=== PATIENT | male | born 1995 | race Caucasian/White ===

== ENCOUNTER 2020-12-20 21:03 | Emergency (ER) | payer OTHER, SELFPAY ==
[2020-12-20 21:33] VITALS: BP 121/76; PULSE 84; RESP 16; TEMP 36.4; O2SAT 96; BMI 28.4
[2020-12-20 22:29] LABS: Glucose Urine UA NEG (NEG); Leukocyte Esterase Urine TRACE (NEG); Nitrite Urine NEG (NEG); Specific Gravity - Urine 1.025 (1.005-1.025); Urine Blood NEG (NEG); Urine Ketones NEG (NEG); Urine Protein NEG (NEG-TRACE)
[2020-12-20 22:31] LABS: Appearance Urine CLEAR; Color Urine YELLOW
[2020-12-20 23:09] LABS: RBC Urine 0-2 /HPF (0); Renal Epithelial Cells Urine TRACE /LPF; Squamous Epithelial Cell Urine TRACE /LPF; WBC Clumps Urine NOTED
--- NOTE | 2020-12-21 00:47 | ED_ITS ---
HPI - Male Genitourinary General Chief complaint: Urogenital-Male Stated complaint: STD Test Time Seen by Provider: 12/21/20 00:40 Source: patient Mode of arrival: ambulatory Limitations: no limitations History of Present Illness HPI Narrative: Patient comes emergency room complaining of burning with urination, penile discharge for 4-5 days. Patient admits to having unprotected sex approximately 1 week ago. Patient denies hematuria, no flank pain, no fever. Patient denies also testicular pain or swelling. MD Complaint: penile discharge and possible STD exposure Related Data Previous Rx's Medication Instructions Recorded doxycycline hyclate 100 mg PO BID #13 tab 12/21/20 nitrofurantoin macrocrystal 100 mg PO BID #14 cap 12/21/20 Allergies Allergy/AdvReac Type Severity Reaction Status Date / Time No Known Allergies Allergy Verified 12/20/20 21:37 Review of Systems Review of Systems: Constitutional : No Weight loss, No Fever, No Chills, No Night Sweats, No Fatigue, No Malaise ENT/Mouth : No Hearing loss, No Ear Pain, No Nasal Congestion, No Sinus Pain, No Hoarseness, No sore throat, No Rhinorrhea, No Swallowing Difficulty Eyes: No Eye Pain, No Swelling, No Redness, No Foreign Body, No Discharge, No Vision Changes Cardiovascular : No Chest Pain, No SOB, No Dyspnea on Exertion, No Orthopnea, No Edema, No Palpitations Respiratory : No Cough, No Sputum, No Wheezing, No Smoke Exposure, No Dyspnea Gastrointestinal : No Nausea, No Vomiting, No Diarrhea, No Constipation, No abdominal Pain, No Hematochezia, No Melena Genitourinary : Complaining of dysuria, No Urinary Frequency, No Hematuria, No Urinary Incontinence, No Urgency, No Flank Pain, No Urinary Flow Changes, No Hesitancy, complaining of penile discharge, denies testicular pain Musculoskeletal : No joint pain, No Myalgias, No Joint Swelling Skin : No Skin Lesions, No rash Neuro : No Weakness, No Numbness, No Paresthesias, No Loss of Consciousness, No Dizziness, No Headache Psych : No Anxiety/Panic, No Depression, No SI/HI/AH/VH, No Social Issues, Heme/Lymph: No Bruising, No Bleeding,No Lymphadenopathy Endocrine : No Polyuria, No Polydipsia, No Temperature Intolerance [facility] Past Medical History Medical History No known health problems Social History Social History Advance Directives: No Advance Directives Information Provided: No Physical Exam Vital Signs: Vital Signs: Last Vital Signs Temp 97.5 F 12/20/20 21:33 Pulse 84 12/20/20 21:33 Resp 16 12/20/20 21:33 BP 121/76 12/20/20 21:33 Pulse Ox 96 12/20/20 21:33 Body Mass Index 28.4 Appearance: Alert. Oriented X3. No acute distress. Eyes: Pupils equal, round and reactive to light. ENT: Pharynx normal. Neck: Normal inspection. Neck supple. No lymph nodes noted. No crepitus CVS: Normal heart rate and rhythm. Pulses normal. Normal S1 and S2 Respiratory: No respiratory distress. Breath sounds normal. No Wheezing. No rales Abdomen: Soft and nontender. No rigidity. No distention. : Clear penile discharge Skin: Skin warm and dry. Normal skin color. Normal skin turgor. Extremities: No lower extremity edema. No lower extremity edema. No Lacerations. No Rash Neuro: Oriented X 3. No motor deficit. No sensory deficit. Moving all extermities. No slurred speech. Course Course Course Narrative: Patient received the 1st dose of ceftriaxone IM and p.o. doxycycline. CT NG pending MDM - Male Genitourinary Lab Data Labs: Lab Results 12/20/20 Range/Units 22:20 Urine Color YELLOW Urine Appearance CLEAR Urine pH 6.0 (5.0-8.0) Ur Specific [place] 1.025 (1.005-1.025) Urine Protein NEG (NEG-TRACE) MG/DL Urine Glucose (UA) NEG (NEG) MG/DL Urine Ketones NEG (NEG) MG/DL Urine Blood NEG (NEG) Urine Nitrite NEG (NEG) Ur Leukocyte Esterase TRACE H (NEG) Urine RBC 0-2 (0) /HPF Urine WBC 15-29 H (0-4) /HPF Urine WBC Clumps NOTED Ur Squamous Epith Cells TRACE /LPF Ur Renal Epithelial Cell TRACE /LPF Urine Bacteria NONE /LPF Discharge Plan Discharge Clinical Impression: Sexually transmitted disease (STD) Urinary tract infection Qualifiers: Urinary tract infection type: site unspecified Hematuria presence: without hematuria Qualified Code(s): N39.0 - Urinary tract infection, site not specified Patient Disposition: Home, Self-Care Instructions: Sexually Transmitted Diseases (ED), Safe Sex Practices (ED) Additional Instructions: Please follow-up with your primary care physician tomorrow. If you have any worsening or new symptoms, please return to the emergency room or call 911 Prescriptions: New doxycycline hyclate 100 mg tablet 100 mg PO BID Qty: 13 RF: 0 nitrofurantoin macrocrystal 100 mg capsule 100 mg PO BID Qty: 14 RF: 0
[2020-12-21] MEDS: cefTRIAXone sodium 500 MG, Lidocaine HCl 1 % MPF 1 ML IM (01:04)
[2020-12-21 10:37] LABS: CT PCR NOT DETECTED (Not Detect.); NG PCR NOT DETECTED (Not Detect.)
== END 2020-12-21 01:21 | disposition home or self-care (01) ==
PROVIDERS: Emergency Provider Emergency Medicine; PCP Internal Medicine
DX: R30.0 Dysuria (principal); Z20.2 Contact with and (suspected) exposure to infections with a predominantly sexual mode of transmission; Z79.899 Other long term (current) drug therapy
CPT/HCPCS: 81001; 87491; 87591; 96360; 96372; 99283; J0696

== ENCOUNTER 2022-06-19 13:34 | Emergency (ER) | payer OTHER, SELFPAY ==
--- NOTE | ~2022-06-19 | XR_ITS ---
EXAMINATION: XR TOES, LEFT CLINICAL INFORMATION: Fourth toe pain after trauma COMPARISON: None TECHNIQUE: 3 views of the left toes were obtained. FINDINGS: There is no evidence of acute fracture or dislocation of the left fourth toe. Joint spaces are maintained. No radiopaque foreign body. XR/XR toe LT min 2V IMPRESSION: No bony abnormality of the left fourth toe identified.
[2022-06-19 14:12] VITALS: BP 121/69; PULSE 73; RESP 19; TEMP 36.6; O2SAT 98; BMI 28.1
--- NOTE | 2022-06-19 14:22 | ED_ITS ---
HPI - Extremity Injury (Lower) General Chief Complaint: Extremity Injury, Lower <Italia Smith NP - Last Filed: 06/19/22 14:22> Stated Complaint: toe/ foot pain <Italia Smith NP - Last Filed: 06/19/22 14:22> Time Seen by Provider: 06/19/22 14:50 <Italia Smith NP - Last Filed: 06/19/22 14:22> Source: patient <CARINA Graff - Last Filed: 06/19/22 16:32> Mode of arrival: ambulatory <CARINA Graff - Last Filed: 06/19/22 16:32> Limitations: no limitations <CARINA Graff - Last Filed: 06/19/22 16:32> History of Present Illness HPI Narrative: 26yoM who works for [employer] presenting to the ER with complaints of left foot pain at the proximal aspect of the 4th toe that started on Tuesday of last week while he was at work working for [employer]. He reports that he was unloading the truck and 1 of the bags that holds a lot of packages that is approximately over 50 lb fell directly onto his foot and since then he has been having intermittent pain. He denies any other injuries complaints or concerns at this time. <CARINA Graff - Last Filed: 06/19/22 16:32> MD complaint: foot injury <CARINA Graff - Last Filed: 06/19/22 16:32> Onset (ago): week(s) (1) <CARINA Graff - Last Filed: 06/19/22 16:32> Injury: Left: foot and toes (Fourth toe proximal aspect) <CARINA Graff - Last Filed: 06/19/22 16:32> Type of Injury: blunt <CARINA Graff - Last Filed: 06/19/22 16:32> Place: work <CARINA Graff Last Filed: 06/19/22 16:32> Severity: mild <CARINA Graff Last Filed: 06/19/22 16:32> Relieving factors: nothing <CARINA Graff Last Filed: 06/19/22 16:32> Exacerbating factors: movement <CARINA Graff Last Filed: 06/19/22 16:32> Context: direct blow <CARINA Graff Last Filed: 06/19/22 16:32> Associated symptoms: swelling and ambulatory <CARINA Graff Last Filed: 06/19/22 16:32> Other symptoms: none <CARINA Graff Last Filed: 06/19/22 16:32> Related Data Home Medications: Previous Rx's Medication Instructions Recorded naproxen 500 mg tablet 500 mg PO BID PRN pain #14 tabs 06/19/22 <Italia Smith NP - Last Filed: 06/19/22 14:22> Allergies/Adverse Reactions: Allergies Allergy/AdvReac Type Severity Reaction Status Date / Time No Known Allergies Allergy Verified 12/18/21 10:36 <Italia Smith NP - Last Filed: 06/19/22 14:22> Review of Systems Review of Systems: Constitutional : No Weight loss, No Fever, No Chills, No Night Sweats, No Fatigue, No Malaise ENT/Mouth : No Hearing loss, No Ear Pain, No Nasal Congestion, No Sinus Pain, No Hoarseness, No sore throat, No Rhinorrhea, No Swallowing Difficulty Eyes: No Eye Pain, No Swelling, No Redness, No Foreign Body, No Discharge, No Vision Changes Cardiovascular : No Chest Pain, No SOB, No Dyspnea on Exertion, No Orthopnea, No Edema, No Palpitations Respiratory : No Cough, No Sputum, No Wheezing, No Smoke Exposure, No Dyspnea Gastrointestinal : No Nausea, No Vomiting, No Diarrhea, No Constipation, No abdominal Pain, No Hematochezia, No Melena Genitourinary : no irregular bleeding, No Dysuria, No Urinary Frequency, No Hematuria, No Urinary Incontinence, No Urgency, No Flank Pain, No Urinary Flow Changes, No Hesitancy Musculoskeletal : + left 4th toe/foot joint pain, No Myalgias, No Joint Swelling Skin : No Skin Lesions, No rash Neuro : No Weakness, No Numbness, No Paresthesias, No Loss of Consciousness, No Dizziness, No Headache Psych : No Anxiety/Panic, No Depression, No SI/HI/AH/VH, No Social Issues, Heme/Lymph: No Bruising, No Bleeding,No Lymphadenopathy Endocrine : No Polyuria, No Polydipsia, No Temperature Intolerance <CARINA Graff - Last Filed: 06/19/22 16:32> Yes all other systems are reviewed and are negative <CARINA Graff - Last Filed: 06/19/22 16:32> [facility] Past Medical History Attestation statement: The following information was validated with the patient. 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], left leg No known health problems <Italia Smith NP - Last Filed: 06/19/22 14:22> Surgical History: Surgical History H/O myringotomy History of surgery on lower extremity <Italia Smith NP - Last Filed: 06/19/22 14:22> Family History Family History: Family History Maternal Grandmother Myocardial infarct <Italia Smith NP - Last Filed: 06/19/22 14:22> Social History Social History: Social History Housing: Other Patient Tobacco Use Status: Never used Tobacco Years Smoked: smokes pot e-Cigarette/Vaping Use: Never Used Second Hand Smoke Exposure: No Advance Directives: No Advance Directives Information Provided: Yes Current occupational status: employed Cognitive needs: No Hearing needs: No Vision needs: No <Italia Smith NP - Last Filed: 06/19/22 14:22> Physical Exam Vital Signs: Vital Signs: Last Vital Signs Temp 98 F 06/19/22 14:12 Pulse 73 06/19/22 14:12 Resp 19 06/19/22 14:12 BP 121/69 06/19/22 14:12 Pulse Ox 98 06/19/22 14:12 O2 Del Method 06/19/22 14:12 BMI result Body Mass Index 28.1 <Italia Smith NP - Last Filed: 06/19/22 14:22> Vital Signs: Last Vital Signs Temp 98 F 06/19/22 14:12 Pulse 73 06/19/22 14:12 Resp 19 06/19/22 14:12 BP 121/69 06/19/22 14:12 Pulse Ox 98 06/19/22 14:12 O2 Del Method 06/19/22 14:12 BMI result Body Mass Index 28.1 vital signs have been reviewed as normal and appeared to be correct. Blood pressure normal Heart rate normal. Respiration rate normal. Temperature normal. Oxygen saturation normal. <CARINA Graff - Last Filed: 06/19/22 16:32> Appearance: Alert. Oriented X3. No acute distress. Head: Normal external exam. Normocephalic. Atraumatic. Eyes: PERRLA. EOMI. Conjunctiva and sclera normal. Eyelids normal. ENT: Pharynx normal. Uvula midline. Moist mucous membranes. Neck: Normal inspection. Neck supple. FROM. CVS: Normal heart rate and rhythm. Respiratory: No respiratory distress. Painless inspiration. Skin: Skin warm and dry. Normal skin color. Normal skin turgor. No rashes/lesions/lacerations noted. Extremities: Patient mild tenderness palpation and soft tissue swelling to the proximal aspect of the 4th toe. No obvious ligamentous or tendon injury noted he has full range of motion all toe/foot and ankle joint. There is no 5th metatarsal tenderness noted. No ankle tenderness noted. Achilles tendon is intact not lacerated a ruptured. Negative Akers test. There is no signs of infection not consistent with septic joint. There is no lower extremity more calf tenderness. Otherwise all other extremities exhibit normal range of motion nontender. No lower extremity edema. Neuro: Oriented X 3. No motor deficit. No sensory deficit. Reflexes normal. Normal steady gait. No focal neuro deficits noted. Vascular: + 2 distal pedal pulses/+2 dorsalis pedis b/l. Normal cap refill. No cyanosis noted to upper extremity nails and lower extremity toes nails. <CARINA Graff - Last Filed: 06/19/22 16:32> Course Course Course Narrative: This is a rapid medical exam. Deferred additional HPI, ROS, PE to primary provider. 26 yo male here with left 4th toe pain after crush injury. will check x-rays. VSS. <Italia Smith NP - Last Filed: 06/19/22 14:22> Reevaluation(s) Reevaluation #1: Left foot x-ray negative for any acute processes. Will DC home with symptomatic treatment instructions return if any new or worsening symptoms follow up with primary care provider. Patient understands agrees with this plan. <CARINA Graff - Last Filed: 06/19/22 16:32> Time: 15:18 <CARINA Graff - Last Filed: 06/19/22 16:32> MDM - Extremity Injury (Lower) Medical Records Attestation: I reviewed the patient's medical records. <CARINA Graff - Last Filed: 06/19/22 16:32> Imaging Data Left toe/foot x-ray: Attestation: I personally reviewed and interpreted this imaging study as follows: <CARINA Graff - Last Filed: 06/19/22 16:32> Radiologist's impression: FINDINGS: There is no evidence of acute fracture or dislocation of the left fourth toe. Joint spaces are maintained. No radiopaque foreign body. XR/XR toe LT min 2V IMPRESSION: No bony abnormality of the left fourth toe identified. <CARINA Graff - Last Filed: 06/19/22 16:32> Discharge Plan Discharge Clinical Impression: Sprain of fourth toe, left, Work related injury <Italia Smith NP - Last Filed: 06/19/22 14:22> Patient Disposition: Home, Self-Care <Italia Smith NP - Last Filed: 06/19/22 14:22> Instructions: Foot Sprain (ED), Return to Work Instructions (ED) <Italia Smith NP - Last Filed: 06/19/22 14:22> Prescriptions: New naproxen 500 mg tablet 500 mg PO BID PRN (Reason: pain) Qty: 14 0RF <Italia Smith NP - Last Filed: 06/19/22 14:22> Referrals: Po,Lorenver O, MD [Primary Care Provider] - 3 days <Italia Smith NP - Last Filed: 06/19/22 14:22> Stand Alone Forms: Work/School Release <Italia Smith NP - Last Filed: 06/19/22 14:22> Print Language: Yakut <Italia Smith NP - Last Filed: 06/19/22 14:22>
--- OUTSIDE RECORDS SUMMARY | 2022-06-19 15:03 | XMS_ITS | Continuity of Care Document ---
:1995 Author Organization [facility] Address [address] [place] [id number]- Care Team Providers Name Role Phone Win Lynch MD Primary Care Physician Encounter [facility] Date(s): 08/17/19 - 08/17/[address] [address]- [facility] Discharge Disposition: A-D/C Home Attending Physician: Elijah Schrader DDS, MD Admitting Physician: Elijah Schrader DDS, MD Referring Physician: Elijah Schrader DDS, MD Allergies, Adverse Reactions, Alerts Substance Reaction Severity Status NKA Active Medications acetaminophen-oxycodone 325 mg-10 mg oral tablet 1 tablet, By Mouth, Every 4 hours, PRN Pain , Mild Pain , Moderate, for 5 days, # 24 tablet, 0 Refills, Acute 08/22/19 13:03:00 EST, 08/17/19 13:03:00 EST, Tablet, Partial fill upon patient request Start Date: 08/17/19 Stop Date: 08/22/19 Status: Ordered Vital Signs Most recent to oldest 1 2 3 4 [Reference Range]: Height 172.5 cm 171 cm (08/17/19 10:12 AM) (08/03/19 9:15 AM) Weight 81.6 kg 79.7 kg (08/17/19 10:12 AM) (08/03/19 9:15 AM) Oxygen Saturation 97 % 100 % 100 % [94-100 %] (08/17/19 2:00 PM) (08/17/19 1:45 PM) (08/17/19 1:30 PM) Pulse Rate [55-90 80 bpm bpm] (08/17/19 10:12 AM) Body Mass Index 27.42 27.26 [18.5-24.99] *H* *H* (08/17/19 10:12 AM) (08/03/19 9:15 AM) Blood Pressure 142/89 mm Hg 152/85 mm Hg 148/96 mm Hg [90-138/55-84 mm Hg] *H* *H* *H* (08/17/19 2:00 PM) (08/17/19 1:45 PM) (08/17/19 1:30 PM) Respiratory Rate 8 br/min 13 br/min 12 br/min [16-30 br/min] *L* *L* *L* (08/17/19 2:00 PM) (08/17/19 1:45 PM) (08/17/19 1:30 PM) Temperature 97.7 DegF 97.3 DegF 97.6 DegF [96.8-100.4 DegF] (08/17/19 1:30 PM) (08/17/19 1:00 PM) (08/17/19 10:1 2 AM) Liters per Minute 5 L/min 5 L/min (08/17/19 1:15 PM) (08/17/19 1:00 PM) Mode of Delivery Room air Room air Room air Room air (Oxygen) (08/17/19 2:00 PM) (08/17/19 2:00 PM) (08/17/19 1:45 PM) (08/17/19 1:45 PM) Blood pressure sites Arm, left (08/17/19 10:12 AM) Temperature Route Temporal Temporal Temporal (08/17/19 1:30 PM) (08/17/19 1:00 PM) (08/17/19 10:12 AM) Dry Weight 81.6 kg 79.7 kg (08/17/19 10:12 AM) (08/03/19 9:15 AM) Weight Obtained Via Standing scale (08/03/19 9:15 AM) Dry Weight Obtained Standing scale Via (08/03/19 9:15 AM)
== END 2022-06-19 16:55 | disposition home or self-care (01) ==
PROVIDERS: Emergency Provider Emergency Medicine; PCP Internal Medicine
DX: S93.505A Unspecified sprain of left lesser toe(s), initial encounter (principal); W20.8XXA Other cause of strike by thrown, projected or falling object, initial encounter; Y93.89 Activity, other specified; Y92.812 Truck as the place of occurrence of the external cause; Y99.0 Civilian activity done for income or pay
CPT/HCPCS: 73660; 99283

== ENCOUNTER 2024-11-06 10:16 | Outpatient (AMB) | payer OTHER, SELFPAY ==
--- NOTE | 2024-11-06 10:21 | MHC.PC.OV ---
Vital Signs 11/06/24 10:22 Height 5 ft 8 in Weight 182 lb 6.4 oz BMI 27.7 BP 112/76 Blood Pressure Location Lt brachial Position Sitting Respiration 16 Pulse 94 Pulse Source Pulse Oximeter Temp 97.1 F Temp Source Temporal Artery Scan Pulse Oximetry (%) 97 Oxygen Delivery Method Room Air Intake Visit Reasons: annual exam Squeak Rattle And Leak Repairer Required: No Accompanied by: Self / Same As Patient Allergies No Known Allergies Allergy (Verified 11/06/24 10:24) Tobacco use date assessed: 11/06/24 Dental Screening Dental Screen Date: 11/06/24 Did you have a dental visit in the last 12 months?: No Did you have a dental problem in the last 6 months where you did not have access to dental care?: No Was dental information given to patient?: Patient has dentist HPI annual exam HPI Details R ear infection, 3 months ago while playing basketball L shoulder pain PFSH Medical History Chlamydia 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 Father No problems noted. Social History (Updated 11/06/24 @ 10:34 by Win Lynch MD) Housing: Other Alcohol intake: never Patient Tobacco Use Status: Never used Tobacco Years Smoked: smokes pot e-Cigarette/Vaping Use: Never Used Second Hand Smoke Exposure: No Substance Use Type: Marijuana Current occupational status: employed Current occupation: [employer] Cognitive needs: No Hearing needs: No Vision needs: No Questionnaire PHQ-9 Over the last 2 weeks, how often have you been bothered by any of the following problems? 1. Little interest or pleasure in doing things: nearly every day 2. Feeling down, depressed, or hopeless: not at all 3. Trouble falling or staying asleep, or sleeping too much: not at all 4. Feeling tired or having little energy: not at all 5. Poor appetite or overeating: not at all 6. Feeling bad about yourself - or that you are a failure or have let yourself or your family down: not at all 7. Trouble concentrating on things, such as reading the newspaper or watching television: not at all 8. Moving or speaking so slowly that other people could have noticed. Or the opposite - being so fidgety or restless that you have been moving around a lot more than usual: not at all 9. Thoughts that you would be better off or of hurting yourself in some way: not at all Total score: 3 Depression Screening Interpretation: Negative Depression Screening Done: Yes 16849 - PHQ-9 Billing: Yes Source: Developed by Drs. Chapincito Carlin, Anita Graf, Kristopher Lennon and colleagues, with an educational corine from [employer]. Thrive Questionnaire Date Thrive assessed: 11/06/24 I am a: Patient What is your living situation today?: I have a steady place to live Within the past 12 months, did the food you bought not last and you didn't have the money to get more?: Never true Within the past 12 months, did you worry whether your food would run out before you got money to buy more?: Never true Do you have trouble paying for medicines?: No Do you have trouble getting transportation to medical appointments?: No Do you have trouble paying your heating and electricity bill?: No Do you have trouble taking care of your child, family member or friend?: No Do you have trouble with day-to-day activities such as bathing, preparing meals, shopping, managing finances, etc.?: No Are you currently unemployed and looking for a job?: No Are you interested in more education?: No Please select the resources that you would like help with: None Currently or been in a relationship where the following occur: No concerns reported THRIVE Score: 0 AUDIT C Alcohol Use Questionnaire (AUDIT-C) 1. How often do you have a drink containing alcohol?: Never 3. How often do you have six or more drinks on one occasion?: Never Total Score: 0 Score Reviewed/Action Taken: No JAI-7 AMB Questionnaire JAI-7 Date JAI - 7 assessed: 11/06/24 Feeling nervous, anxious, or on edge: 0 = Not at all Not being able to stop or control worryin = Not at all Worrying too much about different things: 0 = Not at all Trouble relaxin = Not at all Being so restless that it is hard to sit still: 0 = Not at all Becoming easily annoyed or irritable: 0 = Not at all Feeling afraid as if something awful might happen: 0 = Not at all Total JAI-7 score (0-4 normal; 5-9 mild; 10-14 moderate; 15-21 severe): 0 Source: Developed by Drs. Chapincito Carlin, Anita Graf, Kristopher Lennon and colleagues, with an educational corine from [employer]. JAI-7 Assessment Billing JAI-7 Assessment Tool: JAI-7 Assessment 28246 Review of Systems Const Denies poor appetite and Denies weakness Eyes Denies no additional complaints ENT Reports Normal hearing present, Denies dizziness, Denies nasal congestion, Denies tinnitus and Denies sore throat Card Denies chest pain, Denies syncope, Denies rapid heart rate and Denies dyspnea Resp Denies cough and Denies dyspnea GI Denies change in stool character, Reports constipation, Denies diarrhea, Denies nausea and Denies vomiting Denies dysuria and Denies urinary frequency Neuro Reports Normal hearing present, Denies confusion, Denies dizziness, Denies syncope and Denies weakness Psych Denies confusion Physical exam (Primary Care) Vital Signs: Last Vital Signs Temp 97.1 F 11/06/24 10:22 Oxygen Delivery Method Room Air 11/06/24 10:22 BMI result Body Mass Index 27.7 Tobacco/Smoking Status: Tobacco use Status Tobacco use date assessed 12/18/21 09/17/24 09:01 Patient Tobacco Use Status Never used Tobacco 11/06/24 10:27 e-Cigarette/Vaping Use Never Used 11/06/24 10:27 Depression Screening Interpretation: Negative Thrive Assessment: Date of Thrive Assessment Date Thrive assessed 12/18/21 09/17/24 09:01 Currently or been in a relationship where the following occur: No concerns reported Const Other: R TM with a hole- avoid under water General: No confusion Orientation/consciousness: No confusion HENMT Head: Yes normocephalic Ears: external ears normal and TM's normal bilaterally Face and sinus: Yes normal facial exam Mouth: moist mucous membranes Throat: Yes tonsils normal Eyes Conjunctivae: conjunctivae normal Pupils: Equal, round and reactive pupils present and Pupil accommodation reflex normal Direct Ophthalmoscopy: normal light reflex Neck Neck: No lymphadenopathy Thyroid: Thyroid normal Chest Chest palpation & inspection: normal inspection of the chest Resp Effort & Inspection: normal respiratory effort and no audible wheezes Auscultation: clear to auscultation bilaterally, no crackles, no wheezes and lung sounds not diminished Cardio Rate: regular rate Rhythm: regular rhythm Peripheral pulses: radial pulses present and dorsalis pedis present GI Palpation (GI): no masses Auscultation: normal bowel sounds and normoactive bowel sounds Rectal Exam - Male: Yes deferred Skin General skin exam: no rashes or lesions noted Rashes: no rashes Neuro General: No confusion Cranial nerves: Yes Equal, round and reactive pupils present and Yes Normal hearing present Cognition (Neuro): normal cognition Gait exam (Neuro): Normal gait present Motor exam (neuro): 5/5 motor strength present throughout Deep tendon reflexes (DTR's): Right brachioradialis reflex intensity grade: 2+, Left brachioradialis reflex intensity grade: 2+, Right patellar reflex intensity grade: 2+ and Left patellar reflex intensity grade: 2+ Extrem General: No edema Coding Level of Care Code Est Pt Prev Care 18-39y(66272) Diagnoses Annual physical exam Z00.00 Tympanic membrane perforation H72.90 Additional Codes JAI-7 Assessment Billing - JAI-7 Assessment Tool: JAI-7 Assessment 29735 ([id number]) PHQ-9 - 87728 - PHQ-9 Billing: Yes ([id number]) Assessment & Plan Assessment & Plan (1) Annual physical exam: Code(s): Z00.00 - Encounter for general adult medical examination without abnormal findings Category: Medical (2) Tympanic membrane perforation: Comment: R ear Code(s): H72.90 - Unspecified perforation of tympanic membrane, unspecified ear Category: Medical Plan: call if drain occuring Plan History of Present Illness The patient is a 29-year-old male presenting with a need for a routine physical examination and evaluation of known musculoskeletal and ear-related issues. He has a childhood history of osteochondrosis affecting the left femur, without current complaints. In June 2022, he experienced a resolved sprain of the left fourth toe. Currently, the patient is troubled by recurrent right ear infections, with occasional discharge and a historical surgical intervention on the affected ear. He expresses concern over a possible residual perforation contributing to intermittent infections. Additionally, the patient acknowledges a minor left shoulder strain sustained roughly three months ago during basketball, presenting as mild pain with specific movements, but without major functional impairment. He describes a general improvement over time. The shoulder injury, described as tendon-related, has not resulted in redness, swelling, or functional limitation. Health Maintenance - Discouraged smoking and alcohol consumption. - Reinforced benefits of water intake and dietary improvements for weight management. - Discussed importance of maintaining regular physical activity through participation in sports. - Recommended allergy medications (Claritin, Radha, Zyrtec) for seasonal allergies. - Advised on ear protection and hygiene to prevent infections. Social History - Primarily employed but detailed not provided. - No current use of tobacco or alcohol; occasional alcohol intake results in significant intoxication. 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 - Recent changes in exercise habits leading to a weight reduction of 3-5 pounds. - Drinks more water since two days ago, previously disliked water. Review of Systems - Musculoskeletal: Reports mild pain in left shoulder with specific movements; Denies any current pain in left leg. - Ears: Reports recurrent otorrhea, intermittent congestion; Denies significant hearing loss. - Respiratory: Denies shortness of breath, chest pain. - Gastrointestinal: Denies changes in bowel movements. - Genitourinary: Denies dysuria, nocturia linked to environmental conditions. - Neurological: Denies episodes of fainting, dizziness. - General: Reports recent weight loss of 3-5 pounds; Denies fever. Physical Exam General: Cooperative, healthy appearing, comfortable, no acute distress and well developed Orientation: Patient oriented x3 Limitations: No limitations Head: Normal to inspection Ears: Hearing grossly normal bilaterally, frequent ear infections noted in the right ear with occasional liquid discharge Nose: Normal external nose present, patient reports feeling congested Face and sinus: Normal facial exam Eyes: Appearance normal, both eyes and all related structures Neck: Normal visual inspection and Yes full ROM Respiratory: Normal respiratory effort and able to speak in complete sentences. Clear to auscultation bilaterally Cardiovascular: Regular rate and rhythm. Normal S1 and S2 GI: Normal to inspection. Soft to palpation and nontender Skin: No rashes or lesions noted Neuro: Patient oriented x3 Extremities: Normal to inspection, reports mild pain in the shoulder with certain movements, likely tendon-related, full range of motion present Results Plan The management plan incorporates long-term care for chronic ear conditions with allergy medications to control symptoms and reduce infections, and consideration for ENT consultation if needed. For musculoskeletal issues, primarily focusing on physical therapy and monitoring healing progress regarding the left shoulder injury. The patient is encouraged to maintain healthy lifestyle habits, including increased hydration, physical activity, and managing weight effectively. Patient was informed and verbally consented to the use of an ambient scribe for clinic note documentation during this visit. Discussion Notes I discussed with the patient the possibility of continuing allergic management for his chronic ear condition and advised potential future evaluation by an ENT specialist should symptoms not improve. We reviewed allergic medication options regarding efficacy and sedative effects. For his left shoulder issue, we discussed the natural course of tendon strain recovery, ensuring he understood the rationale for physical therapy and its benefits. Finally, we addressed lifestyle improvements, particularly weight loss and water intake, reinforcing continuous health maintenance, including addressing potential family cardiovascular risks. Patient Instructions - Continue with allergy medications like Claritin or Radha as needed for congestion. - Avoid activities that cause the left shoulder pain and consider gentle exercises or physical therapy. - Stay hydrated and increase water consumption. - Be cautious underwater or with ear hygiene to prevent further ear infections. - Schedule a follow-up if symptoms persist or worsen. - Consider regular health check-ups and updates on vaccinations. - Engage in a balanced diet and regular physical activity. - Attend lab work as instructed when comfortable with fasting requirements. Orders: Orders Complete Blood Count Auto Diff Today Z00.00 - Encounter for general adult medical examination without abnormal findings Thyroid Stimulating Hormone Today Z00.00 - Encounter for general adult medical examination without abnormal findings Comprehensive Met. Panel Today Z00.00 - Encounter for general adult medical examination without abnormal findings Free T4 (Free Thyroxine) Today Z00.00 - Encounter for general adult medical examination without abnormal findings Lipid Panel Today E78.00 - Pure hypercholesterolemia, unspecified, Z00.00 - Encounter for general adult medical examination without abnormal findings Vitamin B12 and Folate Today Z00.00 - Encounter for general adult medical examination without abnormal findings
[2024-11-06 10:22] VITALS: BP 112/76; PULSE 94; RESP 16; TEMP 36.2; O2SAT 97; BMI 27.7
--- OUTSIDE RECORDS SUMMARY | 2024-11-06 11:52 | XMS_ITS ---
Author Name [facility] Organization Unknown Care Team Organization Name Specialty Phone Email Start Date End [facility]
--- OUTSIDE RECORDS SUMMARY | 2024-11-06 11:52 | XMS_ITS | Clinical Summary ---
Author Organization [employer] Address [address] [address] [place] [address] Care Team Providers Care Microwave Supervisor Name Role Phone Unavailable Primary Care Provider Unavailabl e Social History Tobacco Use Types Packs/Day Years Used Date Smoking Tobacco: Never Assessed Sex and Gender Information Value Date Recorded Sex Assigned at Male 05/17/2022 10:37 AM EDT Legal Sex Male 10:37 AM EDT Gender Identity Male 05/17/2022 10:37 AM EDT Sexual Orientation Straight 05/17/2022 10 :37 AM EDT Plan of Treatment Health Maintenance Due Date Last Done Comments Depression Screening 1996 Alcohol/Substance Use Screening 2008 Tobacco Screening 2008 Family Planning (PISQ) 2011 Hepatitis B Vaccines (1 of 3 - 19+ 3-dose series) 2015 DTaP/Tdap/Td Vaccines (1 - Tdap) 12/19/2021 12/18/2021 COVID-19 Vaccine (3 - 2023-2 5 season) 2024 02/09/2021, 01/12/2021 Influenza Vaccine (#1) 2024 07/02/2019 Zoster Vaccines (1 of 2) 2046 RSV Patients and Patients Aged 60 years or older (1 - 1-dose 75+ series) 2071 HIB Vaccines Aged Out No longer eligi ble based on patient's age to complete this topic HPV Vaccines Aged Out No longer eligi ble based on patient's age to complete this topic Hepatitis A Vaccines Aged Out No long er eligible based on patient's age to complete this topic IPV Vaccines Aged Out No longer eligi ble based on patient's age to complete this topic Meningococcal Vaccine Aged Out No dillon regina eligible based on patient's age to complete this topic Pneumococcal Vaccine: Pediatrics (0 to 5 Years) and At-Risk Patients (6 to 49) Years) Aged Out No longer eligible b ased on patient's age to complete this topic RSV under 20 months Aged Out No longe r eligible based on patient's age to complete this topic Rotavirus Vaccines Aged Out No longer eligible based on patient's age to complete this topic
--- OUTSIDE RECORDS SUMMARY | 2024-11-06 11:52 | XMS_ITS | Data Portability ---
Author Organization CARINA Roque s, [address] Address [address] [place] [address] Assessment No assessment recorded. Plan of Treatment Reminders Order Date Submit Date Provider Last Modified By Organization Details Last Modified Time Details Appointments None record ed. Lab None record ed. Referral None record ed. Procedures None record ed. Surgeries None record ed. Imaging None record ed. Medication Orders None record ed. Patient TargetsNo targets recorded. Patient Instructions Encounter Date Encounter Id Patient Instructions Last Modified By Organization Details Last Modified Time 06/25/2022 [id number] bruises: care instructions [email or web address] Not available 06/25/2022 13:32:42 foot and ankle exercises [email or web address] Not available 06/25/2022 13:32:42 Based on your presentation and exam, you are diagnosed with an Toe/Foot Contusion. The x-ray did not show any acute fracture per you from the Emergency Room - we are not going to repeat that x-ray at this time. My suggestions for this condition include: 1. Ice 2. Elevate 3. Rest 4. Make sure you stretch your Foot/ankle regularly for the next 1-2 weeks. (Providing Handout) 5. Take Ibuprofen or Tylenol if you do not have any allergies to these medications. If you take a blood thinner you should not take NSAIDS like Ibuprofen. 6. After 3 days of icing - I would switch to heat - this will help reabsorb any bruising or swelling. We will put you on light duty. Following up in 1 week - I would expect to be returned to full duty at that time. I would be seen more urgently if you develop any of the following symptoms. 1. Numbness 2. Cold Extremities 3. Worsening Pain 4. Skin Redness 5. Calf Swelling Thank you for using [facility], please contact our office if you have any questions or concerns. [email or web address] Not available 06/25/2022 13:32:34 Reason for Referral None Reported. Problems No Known Problems Procedures Surgical History Date Name Laterality Status Provider Name and Address Organization Details Recorded Time Hip arthroscopy dx completed CALVIN Barbosa [facility] 06/25/2022 13:08:08 Imaging Results None recorded. Procedure Notes None recorded. Medical Equipment None Reported. Allergies No known drug allergies Medications Name Sig Start Date Stop Date Status Note LastModified by Organization Details LastModified Time clobetasol 0.05 % topical cream APPLY TO SCALP TWICE A DAY FOR 4 WEEKS THEN BREAK FOR 1 WEEK 06/25 completed Not Available Not Available Not Available naproxen 500 mg tablet 06/25 completed Not Available Not Available Not Available Vitals Date Recorded Body height Body mass index (BMI) Body weight Heart rate Body temperature Pain severity - 0-10 verbal numeric rating [Score] - Reported Oxygen saturation Oxygen saturation in Arterial blood by Pulse oximetry Respiratory rate Systolic blood pressure Diastolic blood pressure Provider Name and Address Organization Details Last Updated DateTime 2 172.72 cm 28.1 kg/m2 53313.5 9 g 71 /min 98.3 [degF] 7 98 % 98 % 16 /min 126 mm[Hg] 72 mm[Hg] CALVIN Barbosa [facility] 13:08:40 Social History Question Answer Notes LastModified by Organizat ion Details LastModified Time Tobacco Smoking Status Never Smoker CARINA De Jesus [facility] 06/25/2022 13:08:24 What Is Your Level Of Alcohol Consumption? None [email or web address] Information not available 06/25/2022 Are You Currently Employed? Yes Information not available 06/25/2022 Which Illicit Or Recreational Drugs Have You Used? Marihuana Information not available 06/25/2022 What Is The Highest Grade Or Level Of School You Have Completed Or The Highest Degree You Have Received? [id number] Information not available 06/25/2022 What Is Your Water Source? City Information not available 06/25/2022 What Is Your Heat Source? Electric Information not available 06/25/2022 Have You Had Direct Contact, Or Contact During Intimacy, With Monkeypox Rash, Scabs, Or Body Fluids From A Person With Monkeypox? No Information not available 06/25/2022 What Is Your Relationship Status? Unknown Information not available 06/25/2022 Do You Use Any Illicit Or Recreational Drugs? Yes Information not available 06/25/2022 Have You Recently Traveled Abroad? No [email or web address] Information no t available 06/25/2022 Are You Currently In School? No Information not available 06/25/2022 Do You Or Have You Ever Used Any Other Forms Of Tobacco Or Nicotine? No Information not available 06/25/2022 Sex: Unknown Functional Status None recorded. Mental Status None recorded. Family History Relationship Description Onset Age of this Age Resolved Age Notes LastModified by Organization Details LastModified Time Father No current problems or disability [email or web address] Not available 06/25/2022 13:07:41 Mother No current problems or disability [email or web address] Not available 06/25/2022 13:07:41 Medical History No medical history recorded. Immunizations Vaccine Type Date Status Note Provider Nam e and Address Organization Details Recorded Time COVID-19, mRNA, LNP-S, PF, 100 mcg/0.5mL dose or 50 mcg/0.25mL dose 1 completed CALVIN bonilla, [place] - [facility] 06/25/2022 13:07:23 Td (adult), 2 Lf tetanus toxoid, preservative free, adsorbed 2 completed CALVIN bonilla, [place] - [facility] 06/25/2022 13:07:23 COVID-19, mRNA, LNP-S, PF, 100 mcg/0.5mL dose or 50 mcg/0.25mL dose 1 completed CALVIN WOO null, [place] - [facility] 06/25/2022 13:07:23 Influenza, split virus, quadrivalent, PF 9 completed CARINA De Jesus - [facility] 06/25/2022 13:07:23 Past Encounters Encounter ID Performer Location Encounter Start Date Encounter Closed Date Diagnosis/Indication Diagnosis SNOMED-CT Code Diagnosis ICD10 Code Diagnosis [facility] [id number] [facility] [address] [place] [address] 11/14/2020 09:30:59 11/14/2020 10:12:14 [id number] [facility] [address] [address] [place] [address] 06/25/2022 10:43:20 06/25/2022 13:37:12 Contusion of lesser toe of left foot [id number] S90.122A Health Concerns Section Related Observation LastModified by Organization Detai ls LastModified Time None Recorded Concern Status LastModified by Organization Details LastModified Time None Recorded Advance Directives Directive None Recorded Payers Encounter Date Sequence Insurance Name Policy Number Policy Chao Covered Member ID Chao Member ID Guarantor Name 11/14/2020 1 [employer] - HEALTH NET PLAN (MEDICAID HMO) MING Belcher [id number] Turner Belcher 06/25/2022 [employer] (PERSONAL INJURY) [employer] [id number] Turner Belcher Notes Date Note Type Note Provider Name and Address Organization Details Recorded Time 2 text/html Foot/Ankle UCReported bypatient.source of patient informationInformation obtained from patient; Patient arrived at Urgent Care ambulatory Location:left Probleminjury Severity:mild Duration:3 days Context:work injury Associated Symptoms:no weakness; no numbness; no tingling; no redness; no warmth; no ecchymosis;swelling Aggravating factors:walking Alleviating factors:ice Prior Imaging:x rayNotes:Workman's Comp - Visit #1 - Works for [employer] - and has been getting heavier bags with the holidays. The patient dropped a bag on the foot. The patient has pain over the left 4th proximal phalanx. Was seen in the ER and it was x-rays. It was not broken. The patient is limping. job is causing increased discomfort over the foot and now right foot is hurting with walking. CARINA BARRY [address] [place], [address], [place] - [facility] 06/25/2022 15:47:11
--- OUTSIDE RECORDS SUMMARY | 2024-11-06 11:52 | XMS_ITS | Encounter Summary ---
Author Organization [facility] Address [address] [place] [address] Care Team Providers Care Dumper Operator Name Role Phone Unavailable Primary Care Provider Unavailabl e Encounter Details Date Type Department Care Team (Latest Contact Info) Description 09/05/2020 Abstract [facility] CONVERSION[facility] Dental, Provider, DDS Social History Tobacco Use Types Packs/Day Years Used Date Smoking Tobacco: Never Assessed Sex and Gender Information Value Date Recorded Sex Assigned at Male 05/17/2022 10:37 AM EDT Legal Sex Male 10:37 AM EDT Gender Identity Male 05/17/2022 10:37 AM EDT Sexual Orientation Straight 05/17/2022 10 :37 AM EDT documented as of this encounter Plan of Treatment Not on file documented as of this encounter Visit Diagnoses Not on filedocumented in this encounter
== END 2024-11-06 11:46 | disposition home or self-care (01) ==
LOC: HO.HMCH 10:17
PROVIDERS: PCP Internal Medicine; Visit Provider Internal Medicine
DX: Z00.00 Encounter for general adult medical examination without abnormal findings (principal); H72.90 Unspecified perforation of tympanic membrane, unspecified ear

== ENCOUNTER → 2024-11-06 10:16 | Outpatient (BNVA) | payer OTHER, SELFPAY | PROVIDERS: PCP Internal Medicine; Visit Provider Internal Medicine | DX: Z00.00 Encounter for general adult medical examination without abnormal findings (principal); H72.91 Unspecified perforation of tympanic membrane, right ear | CPT/HCPCS: 96127; 99395 ==